=== PATIENT | male | born 1985 | race African-American/Black ===

== ENCOUNTER 2020-07-26 08:01 | Emergency (ER) | payer OTHER ==
[~2020-07-26] VITALS: Ht 175.3 cm; Wt 72.6 kg
[2020-07-26 08:10] VITALS: BP 137/84
[2020-07-26] MEDS ORDERED: DOXYCYCLINE 10100 MG PO (08:24)
== END 2020-07-26 08:50 | disposition home or self-care (01) ==
LOC: ER 08:01
PROVIDERS: Emergency Medicine
DX: N45.1 Epididymitis (principal)

== ENCOUNTER 2021-04-15 19:17 | Emergency (ER) | payer OTHER ==
[~2021-04-15] VITALS: Ht 175.3 cm; Wt 68.0 kg
[~2021-04-15 19:17] MED LIST: DOXYCYCLINE 10100 MG PO
[2021-04-15 19:31] VITALS: BP 141/74
[2021-04-15 19:52] LABS: URINE BILIRUBIN NEGATIVE (Negative); URINE BLOOD NEGATIVE (Negative); URINE CLARITY SL CLOUDY; URINE COLOR YELLOW; URINE GLUCOSE-RANDOM* NEGATIVE (Negative); URINE KETONES NEGATIVE (Negative); URINE LEUKOCYTES-REFLEX TRACE (Negative); URINE NITRITE-REFLEX NEGATIVE (Negative); URINE PROTEIN (DIPSTICK) TRACE (Negative); URINE SPECIFIC GRAVITY 1.025 (1.005-1.035); URINE UROBILINOGEN 0.2 E.U./dl (0.2-1.0)
[2021-04-15] MEDS ORDERED: DORYX MPC120 MG PO (20:45)
== END 2021-04-15 21:28 | disposition home or self-care (01) ==
LOC: ER 19:17
PROVIDERS: Nurse Practitioner
DX: A64 Unspecified sexually transmitted disease (principal); N45.1 Epididymitis